=== PATIENT | female | born 1950 | race African-American/Black ===

== ENCOUNTER 2021-07-26 09:13 | Emergency (ER) | payer OTHER, MEDICARE ==
[2021-07-26 09:24] VITALS: BP 127/82; PULSE 96; TEMP 97; BMI 19.1
[2021-07-26] MEDS ORDERED: ACETAMINOPHEN 325 MG TABLET (FP) PO ONE (09:28)
[2021-07-26] MEDS ORDERED: ACETAMINOPHEN 325 MG TABLET (FP) ONE (09:37)
== END 2021-07-26 10:49 | disposition home or self-care (01) ==
LOC: FER 09:13
DX: R22.41 Localized swelling, mass and lump, right lower limb (principal); S99.921A Unspecified injury of right foot, initial encounter; W00.0XXA Fall on same level due to ice and snow, initial encounter
CPT/HCPCS: 73502-TC-RT-FY; 73610-TC-RT-FY; 73630-TC-RT-FY; 99284-25